=== PATIENT | female | born 1965 | race Caucasian/White ===

== ENCOUNTER 2017-03-10 09:24 | Emergency (ER) | payer OTHER ==
[~2017-03-10] VITALS: Ht 170.2 cm; Wt 68.2 kg
[~2017-03-10 09:24] MED LIST: AMOXICILLIN; FERR27TA; OMEP40CA3
[2017-03-10 09:31] VITALS: Ht 170.2 cm; Wt 68.2 kg
[2017-03-10 10:53] VITALS: BP 159/90; PULSE 90; RESP 18
[2017-03-10] MEDS ORDERED: IBUPROFEN 600 MG TAB PO ONE (11:00)
--- NOTE | 2017-03-10 11:41 | ERD ---
ER Documentation Chief Complaint Date/Time DATE: 03/10/17 TIME: 11:37 Chief Complaint LT LEG PAIN X1 MONTH HPI This is a 51-year-old female presenting to emergency department with left lower extremity pain 1 month. Patient states pain starts at the bottom of her left foot and travels up to left calf. No injury or trauma to area. No recent fall. Patient has difficulty ambulating due to pain. Patient took ibuprofen at home with some relief of pain. Patient went to her primary care provider and was told to use foot inserts. Patient states this helped initially however she continues to have pain. Patient also states she has numbness to left 2nd, 3rd and 4th digits of left foot. No loss of sensation. ROS All systems reviewed and are negative except as per history of present illness. Medications Home Meds Active Scripts Hydrocodone/Acetaminophen ([place] 5-325 Tablet) 1 Each Tablet, 1 TAB PO Q6H Y for PAIN, #7 TAB Prov:TIFFANY FRAZIER NP 03/10/17 Ibuprofen* (Motrin*) 600 Mg Tab, 600 MG PO Q6, #30 TAB Prov:TIFFANY FRAZIER NP 03/10/17 Reported Medications Omeprazole* (Prilosec*) 40 Mg Capsule. 07/13/09 [Amoxicillin] 500 MG No Conflict Check 07/13/09 Ferrous Sulfate (Iron) 1 Tab Tablet 07/07/09 Allergies Allergies: Coded Allergies: No Known Drug Allergy (Verified Allergy, Unknown, 07/07/09) PMhx/Soc History of Surgery: No Hx Neurological Disorder: No Hx Respiratory Disorders: No Hx Cardiac Disorders: No Hx Miscellaneous Medical Probl: No Hx Alcohol Use: No Hx Substance Use: No Hx Tobacco Use: No Smoking Status: Never smoker Physical Exam Vitals Vital Signs Date Time Temp Pulse Resp B/P Pulse Ox O2 Delivery O2 Flow Rate FiO2 03/10/17 10:53 90 18 159/90 99 Room Air 03/10/17 09:31 98.1 110 20 192/92 97 Physical Exam Const: Alert, [id number] Head: Atraumatic Eyes: Normal Conjunctiva ENT: Normal External Ears, Nose and Mouth. Neck: Full range of motion..~ No meningismus. Resp: Clear to auscultation bilaterally Cardio: Regular rate and rhythm, no murmurs Abd: Soft, non tender, non distended. Normal bowel sounds Skin: No petechiae or rashes Back: No midline or flank tenderness Ext: No cyanosis, or edema. mild swelling to lateral aspect of left ankle. pedal pulses 2+ to left foot. cap refill less than 3 seconds Neur: Awake and alert Psych: Normal Mood and Affect Results 24 hrs Current Medications Medications (Trade) Dose Ordered Sig/Peri Route PRN Reason Start Time Stop Time Status Last Admin Dose Admin Clonidine (Catapres) 0.1 mg ONCE ONCE PO 03/10/17 11:00 03/10/17 12:53 DC Ibuprofen (Motrin) 600 mg ONCE ONCE PO 03/10/17 11:00 03/10/17 11:01 DC Acetaminophen/ Hydrocodone Bitart ([place] (5/325)) 1 tab ONCE ONCE PO 03/10/17 12:00 03/10/17 12:01 DC 03/10/17 11:39 Procedures/MDM [place] [id number] Radiology Main Line: [phone] DIAGNOSTIC IMAGING REPORT Patient: ERIN GREGORY : 1965 Age: 51 Sex: F MR #: [id number] DOS: 03/10/17 1054 Ordering MD: TIFFANY FRAZIER NP Location: [facility] Room/Bed: PROCEDURE: US Lower extremity Venous. CLINICAL INDICATION: Lower extremity pain and swelling TECHNIQUE: Multiple sonographic images of the left lower extremity deep venous system was obtained utilizing grayscale, color-flow, compressive sonography and doppler imaging with augmentation. The images were reviewed on a PACS workstation. COMPARISON: None. FINDINGS: There is normal compressibility and flow within the left common femoral, superficial femoral and popliteal veins. Antegrade flow seen in the posterior tibial and peroneal veins. IMPRESSION: No sonographic evidence for deep venous thrombosis. [place] [address] Radiology Main Line: [phone] DIAGNOSTIC IMAGING REPORT Patient: ERIN GREGORY : 1965 Age: 51 Sex: F MR #: [id number] DOS: 03/10/17 1052 Ordering MD: TIFFANY FRAZIER NP Location: [facility] Room/Bed: PROCEDURE: XR Left Ankle CLINICAL INDICATION: Pain TECHNIQUE: Standard 3 view radiographs were submitted. COMPARISON: None FINDINGS: Osseous structures: Well mineralized and intact with no fracture or destructive process identified. There is a prominent calcaneal spur at the insertion of the plantar aponeurosis. Joint spaces: Well maintained with no significant erosions or spurring evident. Soft tissues: Appear unremarkable. IMPRESSION: 1. Large calcaneal spur at the insertion of the plantar aponeurosis. 2. Otherwise, unremarkable left ankle series. [place] [address] Radiology Main Line: [phone] DIAGNOSTIC IMAGING REPORT Patient: ERIN GREGORY : 1965 Age: 51 Sex: F MR #: [id number] DOS: 03/10/17 1052 Ordering MD: TIFFANY FRAZIER NP Location: [facility] Room/Bed: PROCEDURE: XR Left Foot CLINICAL INDICATION: Pain TECHNIQUE: AP, oblique, and lateral radiographs were submitted. COMPARISON: None FINDINGS: Osseous structures: appear well mineralized and intact with no fracture or destructive process identified. There is a large calcaneal spur at the insertion of the plantar aponeurosis. Joint spaces: There is a mild hallux valgus. The remaining joint spaces appear normal. Soft tissues: There is a punctate calcification and slight soft tissue prominence medial to the distal first metatarsal head. IMPRESSION: 1. Large calcaneal spur at the insertion of the plantar aponeurosis. 2. Mild hallux valgus with soft tissue prominence and a punctate calcification noted medial to the distal first metatarsal head. MDM: This is a 51-year-old female presenting to emergency department with left foot pain that radiates to left calf 1 month. No injury or trauma to area. Patient has numbness to left second third and fourth digits on left foot. Patient is unable to dorsiflex and plantarflex left foot without discomfort. Patient took ibuprofen earlier today without relief of pain. Patient given [place] p.o. while in the ED. Ultrasound left lower extremity reviewed by radiologist as No sonographic evidence for deep vein thrombosis. . X-ray left foot and ankle reviewed by radiologist as large calcaneal spur at the insertion of the plantar aponeurosis. Mild hallux valgus with soft tissue prominence and a punctuate calcification noted medial to the distal first metatarsal head. An ortho shoe was applied while in the ED. Patient remains neurovascularly intact pre and post splint placement. Upon initial assessment patient's blood pressure 192/92 and heart rate 110 bpm. Upon reassessment blood pressure and heart rate have reduced and are now normal. Diagnosis is calcaneal spur. Low suspicion for acute dislocation or fracture. Low suspicion for septic arthritis. Patient is appropriate for outpatient management and will be given prescription for ibuprofen 600 mg #30 and [place] 5/325 #7. Instructed patient to follow-up with primary care provider in the next 2-3 days for reassessment and additional management. Return to ED for any high fever, chest pain, difficulty breathing, shortness breath, wheezing, vomiting, diarrhea, abdominal pain or any new or worsening symptoms. Patient verbalizes understanding. All questions answered at discharge. Departure Diagnosis: Primary Impression: Calcaneal spur of foot Laterality: left Qualified Code: M77.32 - Calcaneal spur of left foot Condition: Stable TIFFANY FRAZIER NP Mar 10, 2017 11:41
--- NOTE | 2017-03-10 11:42 | RADRPT ---
PROCEDURE: XR Left Ankle CLINICAL INDICATION: Pain TECHNIQUE: Standard 3 view radiographs were submitted. COMPARISON: None FINDINGS: Osseous structures: Well mineralized and intact with no fracture or destructive process identified. There is a prominent calcaneal spur at the insertion of the plantar aponeurosis. Joint spaces: Well maintained with no significant erosions or spurring evident. Soft tissues: Appear unremarkable. IMPRESSION: 1. Large calcaneal spur at the insertion of the plantar aponeurosis. 2. Otherwise, unremarkable left ankle series. Physician Colby Date Time Electronically viewed and signed by Physician Colby on 03/10/2017 11:42 /
--- NOTE | 2017-03-10 11:44 | RADRPT ---
PROCEDURE: XR Left Foot CLINICAL INDICATION: Pain TECHNIQUE: AP, oblique, and lateral radiographs were submitted. COMPARISON: None FINDINGS: Osseous structures: appear well mineralized and intact with no fracture or destructive process iden tified. There is a large calcaneal spur at the insertion of the plantar aponeurosis. Joint spaces: There is a mild hallux valgus. The remaining joint spaces appear normal. Soft tissues: There is a punctate calcification and slight soft tissue prominence medial to the dist al first metatarsal head. IMPRESSION: 1. Large calcaneal spur at the insertion of the plantar aponeurosis. 2. Mild hallux valgus with soft tissue prominence and a punctate calcification noted medial to the distal first metatarsal head. Physician Colby Date Time Electronically viewed and signed by Physician Colby on 03/10/2017 11:44 /
--- NOTE | 2017-03-10 11:59 | RADRPT ---
PROCEDURE: US Lower extremity Venous. CLINICAL INDICATION: Lower extremity pain and swelling TECHNIQUE: Multiple sonographic images of the left lower extremity deep venous system was obtained utilizing grayscale, color-flow, compressive sonography and doppler imaging with augmentation. The images were reviewed on a PACS workstation. COMPARISON: None. FINDINGS: There is normal compressibility and flow within the left common femoral, superficial femoral and pop liteal veins. Antegrade flow seen in the posterior tibial and peroneal veins. IMPRESSION: No sonographic evidence for deep venous thrombosis. RPTAT: AA .Kash Mckeon MD, MD Date Time Electronically viewed and signed by .Kash Mckeon MD, MD on 03/10/2017 11:59 .P/
[2017-03-10] MEDS ORDERED: HYDROCODONE/APAP (5/325) TAB PO ONE (12:00)
[2017-03-10] MEDS ORDERED: HYDR-906 PO (12:51)
[2017-03-10] MEDS ORDERED: IBUP-1542 PO (12:51)
== END 2017-03-10 13:36 | disposition home or self-care (01) ==
LOC: FTE 09:24
DX: M77.32 Calcaneal spur, left foot (principal)
CPT/HCPCS: 73610; 93971

== ENCOUNTER 2018-03-18 17:09 | Inpatient (IN) | END 2018-03-19 13:55 | disposition home or self-care (01) | DRG 556 ==

== ENCOUNTER 2018-04-05 10:28 | Emergency (ER) | END 2018-04-05 22:15 | disposition short-term general hospital (02) ==

== ENCOUNTER 2018-06-08 11:35 | Emergency (ER) | END 2018-06-08 18:16 | disposition home or self-care (01) ==